=== PATIENT | female | born 1940 | race Caucasian/White ===

== ENCOUNTER 2017-07-10 06:13 | Day surgery (SDC) | payer MEDICARE, OTHER ==
[~2017-07-10] VITALS: Ht 154.9 cm; Wt 78.9 kg
[~2017-07-10 06:13] MED LIST: ASPIR 8181 MG PO; BETAMETHASONE D60 ML TOP; BUPROPION HCL150 M2 PO; CALCIUM 600 +1 EAC3 PO; FENOFIBRATE160 MG PO; HYDROCHLOROTH12.5 M1 PO; ISOSORBIDE MONO30 MG PO; LOTENSIN40 MG PO; OMEPRAZOLE20 MG PO; SORIATANE25 MG PO
--- NOTE | 2017-07-10 08:22 | NUR ---
[facility] ARRIVED IN PACU SLEEPY. ABD SOFT AND PASSING FLATUS. 0815 PT SLEEPY. WILL AWAKEN TO TACTILE STIMULI.
--- NOTE | 2017-07-10 08:49 | OR ---
[facility] [address], [place] [address] Signed DATE OF OPERATION: 07/10/2017 SURGEON: Alexia Salgado MD PREOPERATIVE DIAGNOSES: 1. Change in bowel habits with dark stool. 2. Diverticulosis. POSTOPERATIVE DIAGNOSES: 1. Moderate sigmoid diverticulosis. 2. Moderate internal hemorrhoids. PROCEDURES: Colonoscopy without biopsy. ESTIMATED BLOOD LOSS: None. INDICATIONS: Anusha is a 76-year-old female, who takes aspirin on a daily basis. She had a change in bowel habits with dark if not melanotic stool. She thinks today it was clearing and getting better. She had a colonoscopy with diverticulosis back in 2003. She told me there is no family history of colon cancer or polyps. She was asked by her primary care provider to see me for a followup colonoscopy. I gave her a pamphlet on colonoscopy and we looked at that together along with the risks including, but not limited to gas bloating, crampy abdominal pain, bleeding, perforation, requiring surgery, and missed diagnosis. We also discussed the need for IV conscious sedation. She had expressed understanding and wished to proceed. PROCEDURE NOTE: Anusha was taken into our endoscopy suite and placed in the left lateral decubitus position. She received 6 mg of Versed and 125 mcg of fentanyl to cover the case. A digital rectal exam was performed and this was unremarkable. The adult colonoscope was introduced and advanced under direct visualization of the camera. She has a tortuous somewhat difficult rectosigmoid junction. It took a few extra minutes to get through the rectosigmoid junction and then the colon opened up nicely and all the way around into the cecum. Her prep was average. There were couple of areas of liquid stool, most of which we were able to suction out. The appendiceal orifice and ileocecal valve were easily visualized. The scope was then slowly withdrawn. She has no pathology except the diverticulosis. They are moderate in size, moderate in number, and scattered about Electronically Signed By: ALEXIA SALGADO MD 07/10/17 0849 PATIENT NAME: ANUSHA VILLEGAS OPERATIVE REPORT DATE OF : 42 REPORT #: [id number] PHYSICIAN: ALEXIA SALGADO MD PCP: LEO SANCHEZ MD REPORT IS CONFIDENTIAL AND NOT TO BE RELEASED WITHOUT AUTHORIZATION [facility] [address], [place] [address] Signed in the sigmoid colon. The rectum was unremarkable. Upon retroflexion of scope, she does have moderate internal hemorrhoids. After this, the gas was suctioned out and the colonoscope removed. Anusha tolerated the procedure quite well. RECOMMENDATIONS: Anusha is welcome to follow up in 10 years for repeat colonoscopy so long as her health holds up. MD CHARLY Apple/CECY /[id number] cc: MD Alexia Smith MD Jonathan Hitzman, MD Copies: KATHY NOVA MD, ANDREW L MD HITZMAN, JONATHAN MD ~ Electronically Signed By: ALEXIA SALGADO MD 07/10/17 0849 PATIENT NAME: ANUSHA VILLEGAS OPERATIVE REPORT DATE OF : 42 REPORT #: [id number] PHYSICIAN: ALEXIA SALGADO MD PCP: LEO SANCHEZ MD REPORT IS CONFIDENTIAL AND NOT TO BE RELEASED WITHOUT AUTHORIZATION
--- NOTE | 2017-07-10 10:05 | NUR ---
PT RESTING IN BED-ALERT, ORIENTED AND SUPPORTED BY HER . SHE SEEMED TO BE INFORMED, DEALING APPROPRIATELY WITH PREP. EXTENDED A BLESSING, WILL FOLLOW NEEDED
== END 2017-07-10 08:45 | disposition home or self-care (01) ==
LOC: OPS 06:13 → DS 06:13
PROVIDERS: Colon & Rectal Surgery
PROC: 0DJD8ZZ Inspection of Lower Intestinal Tract, Via Natural or Artificial Opening Endoscopic (ICD-10-PCS; principal; 2017-07-10 06:45)
DX: K64.8 Other hemorrhoids (principal); K57.30 Diverticulosis of large intestine without perforation or abscess without bleeding; Z88.8 Allergy status to other drugs, medicaments and biological substances; Z79.899 Other long term (current) drug therapy
CPT/HCPCS: 99153; G0500; J2250; J3010; J7120

== ENCOUNTER 2023-12-23 10:44 | Observation (INO) | payer MEDICARE, OTHER ==
[~2023-12-23] VITALS: Ht 154.9 cm; Wt 76.2 kg
[~2023-12-23 10:44] MED LIST changes: +ADULT LOW DOSE81 MG PO; -ASPIR 8181 MG PO; -BUPROPION HCL150 M2 PO; +WELLBUTRIN XL150 MG PO
[2023-12-23] MEDS ORDERED: CARDURA2 MG PO (11:13)
[2023-12-23] MEDS ORDERED: OTEZLA30 MG PO (11:13)
[2023-12-23] MEDS ORDERED: INDAPAMIDE1.25 MG PO (11:14)
[2023-12-23] MEDS ORDERED: ISOSORBIDE MONONITRATE 20 MG TAB PO ONE (11:15)
[2023-12-23] MEDS ORDERED: PANTOPRAZOLE SO20 MG PO (11:15)
[2023-12-23] MEDS ORDERED: lisinopriL 20 MG TAB PO ONE (11:15)
[2023-12-23] MEDS ORDERED: DOXAZOSIN MESYLATE 4 MG TAB PO ONE (11:15)
[2023-12-23] MEDS ORDERED: ZETIA10 MG PO (11:16)
[2023-12-23] MEDS ORDERED: METOPROLOL SUCC50 MG PO (11:17)
[2023-12-23] MEDS ORDERED: ALLOPURINOL100 MG PO (11:18)
[2023-12-23] MEDS ORDERED: LISINOPRIL10 MG PO (11:18)
[2023-12-23 12:29] LABS: INFLUENZA B NAA NEGATIVE (NEGATIVE); RESPIRATORY SYNCYTIAL VIR NAA NEGATIVE (NEGATIVE)
[2023-12-23] MEDS ORDERED: ASPIRIN 81 MG CHEW PO ONE (14:00)
[2023-12-23] MEDS ORDERED: FUROSEMIDE 40 MG/4 ML VIAL IV ONE (14:00)
[2023-12-23 14:37] LABS: BASOPHILS 0.6 % (0-2); EOSINOPHILS 1.6 % (0-6); HEMATOCRIT 42.8 % (35.0-50.0); HEMOGLOBIN 13.6 g/dL (12.0-18.0); LYMPHOCYTES 19.1 % (24-44); MCH 29.3 (27-36); MCHC 31.9 g/dl (30-36); MCV 91.8 fl (81-99); MONOCYTES 7.5 % (0-12); NEUTROPHILS 71.2 % (39-80); PLATELET COUNT 200 K/uL (140-440); RBC 4.66 M/ul (4.3-5.7); RDW 15.3 (10.5-15.0)
[2023-12-23 14:59] LABS: ALBUMIN 3.2 g/dL (3.4-5.0); ALBUMIN/GLOBULIN RATIO 0.94 (1.1-2.4); ANION GAP 9.3 (7-21); BILIRUBIN, TOTAL 0.5 ng/dL (0.2-1.0); BUN/CREATININE RATIO 13.93 (6.0-28.6); CALCIUM 9.1 mg/dL (8.5-10.1); CREATININE, SERUM 1.22 mg/dL (0.55-1.02); MAGNESIUM 1.2 mg/dL (1.8-2.4); POTASSIUM 4.3 mmol/L (3.5-5.1); PROTEIN, TOTAL 6.6 g/dL (6.4-8.2)
[2023-12-23 15:01] LABS: INR 1.03 (0.80-1.30); PROTIME 13.1 Sec (11.2-14.2)
[2023-12-23 15:03] LABS: PARTIAL THROMBOPLASTIN TIME 25.8 Sec (22.9-41.3)
[2023-12-23] MEDS ORDERED: MAGNESIUM SULFATE 2 GM/50 ML BAG IV SCH (18:30)
[2023-12-23 18:32] VITALS: BP 178/59
--- NOTE | 2023-12-23 19:20 | NUR ---
RECEIVED REPORT FROM DAY SHIFT RN. PATIENT IS RESTING IN BED. FAMILY AT BEDSIDE. PATIENT DENIES ANY NEEDS. CALL LIGHT IN REACH.
[2023-12-23 20:12] VITALS: BP 164/61
[2023-12-23 20:18] VITALS: BP 164/61
--- NOTE | 2023-12-23 20:40 | NUR ---
PATIENTS VITALS TAKEN AND RECORDED. INTAKE AND OUTPUT RECORDED. PATIENT DARREN ANY PAIN OR SOB. PATIENT IS ON RA. PATIENTS PM MEDS GIVEN PER ORDER. PATIENT HAS IV INFUSING PER ORDER. PATIENT AND FAMILY UPDATED ON PLAN OF CARE AND ALL QUESTIONS ANSWERE. PATIENT DENIES ANY FURTHER NEEDS. CALL LIGHT IN REACH.
[2023-12-23] MEDS ORDERED: DOXAZOSIN MESYLATE 4 MG TAB PO SCH (21:00)
--- NOTE | 2023-12-23 21:43 | NUR ---
PATIENTS IV FLUSHES BUT HAS REDDENED AREA AROUND SITE. PATIENTS IC DC'D. NEW IV PLACE PER ORDER. PATIENTS IV INFUSING PER ORDER. PATIENT IS RESTING IN BED BED AND DENIES ANY FURTHER NEEDS. CALL LIGHT IN REACH. FAMILY HAS LEFT FOR THE EVENING.
--- NOTE | 2023-12-23 22:05 | NUR ---
PATIENT IS RESTING IN BED WATCHING TV. PATIENT DENIES ANY NEEDS. CALL LIGHT IN REACH.
--- NOTE | 2023-12-24 00:10 | NUR ---
PATIENT IS RESTING IN BED WITH EYES CLOSED, RR 17. PAITIENT IS ON TELE #3, HR IS 76. CALL LIGHT IN REACH.
[2023-12-24 02:01] VITALS: BP 165/70
--- NOTE | 2023-12-24 02:43 | NUR ---
PATIENTS VITALS TAKEN AND RECORDED. INTAKE AND OUTPUT RECORDED. PATIENTS OXYGEN NOTED TO BE 81-83% ON RA. PATIENT PLACED ON 3L VIA NC AND OXYGEN SATURATION INCREASED TO 91%. PATIENT DENIES ANY PAIN OR SOB. NO FURTHER NEEDS NOTED. CALL LIGHT IN REACH.
[2023-12-24 02:44] VITALS: BP 165/70
--- NOTE | 2023-12-24 04:11 | NUR ---
PATIENT IS RESTING IN BED WITH EYES CLSOED, RR 17. TELE #3, HR 80. PATIENT REMAINS ON 3L VIA NC. NAD NOTED. CALL LIGHT IN REACH.
[2023-12-24 05:28] LABS: BASOPHILS 0.7 % (0-2); EOSINOPHILS 2.8 % (0-6); HEMATOCRIT 42.2 % (35.0-50.0); HEMOGLOBIN 13.4 g/dL (12.0-18.0); LYMPHOCYTES 14.6 % (24-44); MCH 28.8 (27-36); MCHC 31.8 g/dl (30-36); MCV 90.6 fl (81-99); MONOCYTES 6.8 % (0-12); NEUTROPHILS 75.1 % (39-80); PLATELET COUNT 198 K/uL (140-440); RBC 4.66 M/ul (4.3-5.7)
[2023-12-24 05:29] VITALS: BP 149/62
--- NOTE | 2023-12-24 05:47 | NUR ---
PATIENT ASSISTED TO THE BR A SBA. PATIENT ABLE TO VOID. PATIENT IS BACK SITTING ON SIDE OF BED. VITALS TAKEN AND RECORDED. INTAKE AND OUTPUT RECORDED. PATIENT DENIES ANY PAIN OR SOB. STANDING DW OBTAINED AND RECORDED. PATIENTS IV FLUSHED AND SL PER ORDER. PATIENT DENIES ANY FURTHER NEEDS. CALL LIGHT IN REACH.
[2023-12-24 05:48] LABS: ANION GAP 10.3 (7-21); BUN/CREATININE RATIO 17.69 (6.0-28.6); CALCIUM 9.3 mg/dL (8.5-10.1); CREATININE, SERUM 1.13 mg/dL (0.55-1.02); POTASSIUM 4.3 mmol/L (3.5-5.1)
[2023-12-24 05:49] VITALS: BP 149/62
[2023-12-24] MEDS ORDERED: FUROSEMIDE 40 MG/4 ML VIAL IV ONE (06:45)
--- NOTE | 2023-12-24 07:24 | NUR ---
Patient was awake and alert during first rounds. No cares were required.
--- NOTE | 2023-12-24 07:47 | NUR ---
UR CLINICAL REVIEW: 2 MN FOR VERSALUS- MEETS INPT CRITERIA. WILL DISCUSS WITH . MEDICARE OBS 12/23/23 @ 5928 ORDER MATCHES REG NO AUTH REQUIRED PER MEDICARE GUIDELINES DISCHARGE TO HOME WHEN STABLE 12/25/23
--- NOTE | 2023-12-24 07:49 | NUR ---
PT WATCHING TV AT TIME OF SHIFT REPORT, CONTINUES RESTING IN BED AT THIS TIME. DR FISHERUNG IN TO SEE HER SHE AGREES SHE IS READY TO GO HOME. DC INSTRUCTIONS DISCUSSED ALL QUESTIONS ANSWERED. SATS 90% ON ROOM AIR PT DENIES DISCOMFORTS OR NEEDS
--- NOTE | 2023-12-24 08:30 | NUR ---
PT UP ON THE EDGE OF BED WITH MORNING MEAL SATS REMAIN LOW 90'S ON ROOM AIR. PT DENIES DISCOMFORT. QUESTIONED ABOUT CHF PT STATES SHE IS UNSURE DENIES ANY PREVIOUS EDUCATION FROM PCP OR OTHER EXCEPT SHE KNOWS TO EAT LOW SALT DIET. SPOKE VERBALLY WITH PT ON CHF WILL F/U WITH EDUCATION PACKET
[2023-12-24] MEDS ORDERED: buPROPion HCL 150 MG TABCR PO SCH (09:00)
[2023-12-24] MEDS ORDERED: ISOSORBIDE MONONITRATE 30 MG TABCR PO SCH (09:00)
[2023-12-24] MEDS ORDERED: allopurinoL 100 MG TAB PO SCH (09:00)
[2023-12-24] MEDS ORDERED: PANTOPRAZOLE SODIUM 40 MG TABEC PO SCH (09:00)
[2023-12-24] MEDS ORDERED: ENOXAPARIN SODIUM 40 MG/0.4 ML SYR SUB-Q SCH (09:00)
[2023-12-24] MEDS ORDERED: lisinopriL 10 MG TAB PO SCH (09:00)
[2023-12-24] MEDS ORDERED: ASPIRIN 81 MG TABEC PO SCH (09:00)
[2023-12-24] MEDS ORDERED: METOPROLOL SUCC25 MG PO (09:21)
[2023-12-24] MEDS ORDERED: LASIX20 MG PO (09:30)
--- NOTE | 2023-12-24 09:45 | NUR ---
CHF PACKET PROVIDED TO PT DISCUSSED IT'S CONTENTS AND EDUCATION PROVIDED. FAMILY MEMBER IS PRESENT AND INTERESTED. ENCOURAGED PT TO SPEAK FURTHER WITH HER PHYSICIAN ABOUT THIS AND EDUCATE HERSELF SO HER CONDITION CAN BE MANAGED. UNDERSTNDING VERBALIZED.
--- NOTE | 2023-12-24 10:09 | NUR ---
MED REC COMPLETE
--- NOTE | 2023-12-24 10:15 | NUR ---
DC INSTRUCTIONS PROVIDED AND FURTHER REVIEWED CHF AND PT NEED TO GAIN UNDERSTANDING. QUESTIONS DENIED
[2023-12-24 10:20] VITALS: BP 146/59
--- NOTE | 2023-12-24 10:20 | NUR ---
PATIENT ALERT AND ORIENTED, SITTING ON EDGE OF BED. STATES SHE LIVES IN HOUSE WITH 6 STEPS TO GET INSIDE WHICH SHE HAS NO ISSUES USING AND THEY "HELP ME STAY IN SHAPE." STATES SHE HAS A FRIEND AND SON WHO STAY WITH HER INTERMITTENTLY. HAS NO DME, BUT HAS A WALK-IN TUB, GENERATOR AND ON-DEMAND WATER HEATER. SHE CONTINUES ABLE TO DRIVE AT BASELINE WITH NO DIFFICULTY, HOWEVER SON WILL DRIVE HER AT DC. DENIES ANY FINANCIAL ISSUES AND NO NEED FOR ASSISTANCE PAYING UTILITES. STATES SHE HAS NO CONCERNS OR CM NEEDS AT THIS TIME. PLANS TO DC THIS AM AND RETURN HOME.
--- NOTE | 2023-12-24 11:20 | EKG ---
[facility] [address] [place], [place] [address] Signed Sinus bradycardia with premature atrial complexes Inferior infarct , age undetermined Possible Anterior infarct , age undetermined Abnormal ECG No previous ECGs available Confirmed by Awa Adair MD ([id number]) on 12/24/2023 11:20:04 AM Electronically Signed By: AWA ADAIR MD 12/24/23 1120 PATIENT NAME: HUMA VILLEGAS Electrocardiogram DATE OF : 42 PHYSICIAN: AWA ADAIR MD REPORT #: [id number] REPORT IS CONFIDENTIAL AND NOT TO BE RELEASED WITHOUT AUTHORIZATION
[2023-12-24] MEDS ORDERED: PHARMACY RENAL DOSE ADJUSTMENT 1 DOSE MISC PO SCH (12:00)
== END 2023-12-24 11:01 | disposition home or self-care (01) ==
LOC: ED 10:44 → MS 10:45
PROVIDERS: Emergency Medicine; ADMIT Student in an Organized Health Care Education/Training Program; ATTEND Student in an Organized Health Care Education/Training Program
DX: I13.0 Hypertensive heart and chronic kidney disease with heart failure and stage 1 through stage 4 chronic kidney disease, or unspecified chronic kidney disease (principal); N18.30 Chronic kidney disease, stage 3 unspecified; I50.9 Heart failure, unspecified; E83.42 Hypomagnesemia; F39 Unspecified mood [affective] disorder; K21.9 Gastro-esophageal reflux disease without esophagitis; L40.9 Psoriasis, unspecified; Z87.891 Personal history of nicotine dependence; Z88.2 Allergy status to sulfonamides; Z88.8 Allergy status to other drugs, medicaments and biological substances; Z88.6 Allergy status to analgesic agent; Z79.82 Long term (current) use of aspirin; Z79.899 Other long term (current) drug therapy; Z95.2 Presence of prosthetic heart valve; Z66 Do not resuscitate
CPT/HCPCS: 36415; 71046; 80048; 80053; 83735; 83880; 84484; 85025; 85610; 85730; 87502; 93005; 93010; 96365; 96366; 96372; 96374; 96376; 99284-25; A9270; G0378; J1650; J1940; J3475; U0002